=== PATIENT | female | born 1990 | race Caucasian/White ===

== ENCOUNTER 2022-10-19 18:43 | Emergency (ER) | payer OTHER, SELFPAY ==
[2022-10-19 18:57] VITALS: BP 111/66; PULSE 94; RESP 15; TEMP 36.7; O2SAT 100; BMI 21.0
--- NOTE | 2022-10-19 19:16 | DI.CT.S_ITS ---
PROCEDURE: CT HEAD/BRAIN WO CON INDICATIONS: blurred vision, right eye TECHNIQUE: Noncontrast 4.5 mm thick angled axial sections acquired from the foramen magnum to the vertex, with coronal and sagittal reformats. For radiation dose reduction, the following was used: automated exposure control, adjustment of mA and/or kV according to patient size. COMPARISON: None. FINDINGS: Image quality: Excellent. CSF spaces: Basal cisterns are patent. No extra-axial fluid collections. Ventricles are normal in size and shape. Brain: No midline shift. No intracranial masses or hemorrhage. Brambila-white matter interface is normal. Skull and face: In this patient with this given history, scrutiny is given to the orbits. No focal orbital abnormality is identified. Calvarium and visualized facial bones are intact, without suspicious lesions. Sinuses: Visualized sinuses and mastoids are clear. IMPRESSION: No imaging explanation is found for this patient's presenting symptoms. No significant intracranial abnormality is seen. No significant orbital abnormality can be seen. If there is strong clinical suspicion for an acute stroke, please consider a brain MRI for further evaluation, as it is more sensitive (assuming that there is no contraindication to MRI). Dictated by: González Agudelo M.D. on 10/19/2022 at 18:54 Approved by: González Agudelo M.D. on 10/19/2022 at 18:55
[2022-10-19 19:42] LABS: Alanine Aminotransferase 20 IU/L (<35); Albumin 4.7 g/dL (3.5-5.0); Albumin Globulin Ratio 1.1 (1.0-2.8); Alkaline Phosphatase 56 U/L (38-126); Aspartate Aminotransferase 24 IU/L (14-36); BUN Creatinine Ratio 19.8 (6-22); Bilirubin Total 0.4 mg/dL (0.2-1.3); Blood Urea Nitrogen 16 mg/dL (7-17); Carbon Dioxide 25 mmol/L (22-32); Chloride 100 mmol/L (98-107); Estimated Glomerular Filt Rate > 60 mL/min (>60); Globulin 4.1 g/dL (1.7-4.1); Glucose 102 mg/dL (70-100); HEMOLYSIS < 15 (0-50); Potassium 3.6 mmol/L (3.4-5.1); Sodium 136 mmol/L (137-145); Total Protein 8.8 g/dL (6.3-8.2)
[2022-10-19 19:45] LABS: Add Manual Diff / Slide Review NO; Basophils Absolute Auto 0 /uL (0-100); Basophils Percent Auto 0.6 % (0-2); Eosinophils Absolute Auto 100 /uL (0-450); Eosinophils Percent Auto 1.1 % (2-4); Hematocrit 41.7 % (36-46); Hemoglobin 14.4 g/dL (12.0-16.0); Lymphocytes Absolute Auto 1900 /uL (1100-4500); Lymphocytes Percent Auto 34.1 % (25-40); Mean Corpuscular HGB Conc 34.5 % (30-36); Mean Corpuscular Volume 89.8 fL (80-100); Monocytes Absolute Auto 300 /uL (0-900); Monocytes Percent Auto 4.9 % (3-14); Neutrophils Absolute Auto 3400 /uL (1500-7000); Neutrophils Percent Auto 59.3 % (50-75); Platelet Count 213 X10^3/uL (150-400); Red Blood Cell Count 4.65 X10^6/uL (4.0-5.2); Red Cell Distribution Width 12.2 % (11.6-14.8); White Blood Cell Count 5.7 X10^3/uL (4.5-11.0)
[2022-10-19 21:40] VITALS: PULSE 90; O2SAT 100
[2022-10-19 21:42] VITALS: BP 128/84; PULSE 89; RESP 18; O2SAT 99
[2022-10-19 22:00] VITALS: BP 132/78; PULSE 95; O2SAT 100
--- NOTE | 2022-10-19 22:05 | ED.GENADULT ---
HPI - General Adult General Chief complaint: Eye Problems Stated complaint: rt eye blurry vision, double vision as of tod Time Seen by Provider: 10/19/22 21:44 Source: patient Mode of arrival: Ambulatory Limitations: no limitations History of Present Illness HPI narrative: Patient is a 32-year-old female. She does wear corrective lenses. Does wear contact lenses occasionally but has not done so in several weeks/months. Has never had surgeries on her eyes before. Woke up this morning with blurry vision to her right eye. She states that it is only her far vision that is blurry. She reports no pain in her eye. No foreign body sensation. No problems with moving her eye. Her close vision is normal. She does have somewhat of a fullness around her right eye. 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 States she occasionally gets bad headaches. She does not have a bad headache now. No other upper respiratory tract infection like complaints. She states that her symptoms have actually improved slightly since this morning but not completely gone. She talked with her primary doctor who thought that she should go see an eye doctor but the insurance advised that she come to the emergency department Related Data Allergies Allergy/AdvReac Type Severity Reaction Status Date / Time neomycin Allergy Verified 10/19/22 18:57 Penicillins Allergy Verified 10/19/22 18:57 thimerosal Allergy Verified 10/19/22 18:57 Review of Systems Constitutional Constitutional: Reports system reviewed and no additional complaints, except as documented Eyes Eyes: Reports system reviewed and no additional complaints, except as documented ENT Ears, Nose, Mouth, and Throat: Reports system reviewed and no additional complaints, except as documented Integumentary/Breasts Skin/Breast: Reports system reviewed and no additional complaints, except as documented Hematologic/Lymphatic On Anticoagulants: No Patient History Social History Smoking Status: Unknown if ever smoked Smoking Status: Unknown if ever smoked alcohol intake frequency: holidays/special occasions only Substance Use Type: does not use Exam Initial Vital Signs Initial Vital Signs: Vital Signs Temperature 98.1 F 10/19/22 18:57 Pulse Rate 94 H 10/19/22 18:57 Respiratory Rate 15 10/19/22 18:57 Blood Pressure 111/66 10/19/22 18:57 Pulse Oximetry 100 01/26/23 18:57 Oxygen Delivery Method 10/19/22 18:57 Const General: cooperative, healthy appearing and comfortable HENMD Head: normal to inspection and normocephalic Face and sinus: normal facial exam Eyes General: Yes appearance normal, both eyes and all related structures Alignment and Position: alignment normal and position normal Periorbital: periorbital findings normal Eyelids: eyelids normal Conjunctivae: conjunctivae normal Sclera: sclerae normal Pupils: PERRL EOM: EOM intact bilaterally Direct ophthalmoscopy: normal light reflex, no papilledema and photophobia not present Resp Effort & Inspection: normal respiratory effort Cardio Rate: regular rate Skin General: no rashes or lesions noted Neuro General: patient alert, patient awake and moves all extremities Extrem General: normal to inspection and capillary refill normal Course Orders Ordered: ED Orders 10/19/22 19:16 CT head/brain wo con Stat 10/19/22 19:20 CBC Auto Diff [Complete Blood Count AUTO DIFF] Stat Comprehensive Metabolic Panel Stat Vital Signs Vital signs: Vital Signs - 8 hr 10/19/22 21:42 10/19/22 21:40 10/19/22 22:00 Pulse Rate 89 90 Respiratory Rate 18 Blood Pressure 128/84 132/78 Pulse Oximetry 99 100 Oxygen Delivery Method Room Air 10/19/22 22:00 Pulse Rate 95 H Respiratory Rate Blood Pressure Pulse Oximetry 100 Oxygen Delivery Method Room Air Medical Decision Making Differential Diagnosis Differential Diagnosis: Abrasion, foreign body, CVA, TIA, and other Lab Data Lab results reviewed: Yes I reviewed the patient's lab results. 10/19/22 19:20 10/19/22 19:20 Labs: Lab Results 10/19/22 10/19/22 Range/Units 19:20 19:20 WBC 5.7 (4.5-11.0) X10^3/uL RBC 4.65 (4.0-5.2) X10^6/uL Hgb 14.4 (12.0-16.0) g/dL Hct 41.7 (36-46) % MCV 89.8 (80-100) fL MCH 31.0 (26-34) PG MCHC 34.5 (30-36) % RDW 12.2 (11.6-14.8) % Plt Count 213 (150-400) X10^3/uL Neut % (Auto) 59.3 (50-75) % Lymph % (Auto) 34.1 (25-40) % [place] % (Auto) 4.9 (3-14) % Eos % (Auto) 1.1 L (2-4) % Baso % (Auto) 0.6 (0-2) % Neut # (Auto) 3400 (4643-7311) /uL Lymph # (Auto) 1900 (4572-9574) /uL [place] # (Auto) 300 (0-900) /uL Eos # (Auto) 100 (0-450) /uL Baso # (Auto) 0 (0-100) /uL Sodium 136 L (137-145) mmol/L Potassium 3.6 (3.4-5.1) mmol/L Chloride 100 (98-107) mmol/L Carbon Dioxide 25 (22-32) mmol/L BUN 16 (7-17) mg/dL Creatinine 0.81 (0.52-1.04) mg/dL Estimated GFR > 60 (>60) mL/min BUN/Creatinine Ratio 19.8 (6-22) Glucose 102 H (70-100) mg/dL Calcium 9.0 (8.4-10.2) mg/dL Total Bilirubin 0.4 (0.2-1.3) mg/dL AST 24 (14-36) IU/L ALT 20 (<35) IU/L Alkaline Phosphatase 56 (38-126) U/L Total Protein 8.8 H (6.3-8.2) g/dL Albumin 4.7 (3.5-5.0) g/dL Globulin 4.1 (1.7-4.1) g/dL Albumin/Globulin Ratio 1.1 (1.0-2.8) Imaging Data CT scan - head: Radiologist's Impression: [address] [address] [address] Scan Report Signed Patient: Yasmine Lucas MR#: [id number] : 1990 Acct:[id number] Age/Sex: 32 / F Date of Service: 10/19/22 Loc: ED Accession Number: [id number] ?? Procedure: CT head/brain wo con Ordering Provider: Dion Erazo D.O. PROCEDURE:? CT HEAD/BRAIN WO CON ? INDICATIONS:? blurred vision, right eye ? TECHNIQUE:? Noncontrast 4.5 mm thick angled axial sections acquired from the foramen magnum to the vertex, with coronal and sagittal reformats.? For radiation dose reduction, the following was used:? automated exposure control, adjustment of mA and/or kV according to patient size.? ? COMPARISON:? None. ? FINDINGS:? Image quality:? Excellent.? ? CSF spaces:? Basal cisterns are patent.? No extra-axial fluid collections.? Ventricles are normal in size and shape.? ? Brain:? No midline shift.? No intracranial masses or hemorrhage.? Brambila-white matter interface is normal.? ? Skull and face:? In this patient with this given history, scrutiny is given to the orbits.? No focal orbital abnormality is identified.? ? Calvarium and visualized facial bones are intact, without suspicious lesions.? ? Sinuses:? Visualized sinuses and mastoids are clear.? IMPRESSION:? ? No imaging explanation is found for this patient's presenting symptoms.? ? No significant intracranial abnormality is seen. ? No significant orbital abnormality can be seen. ? If there is strong clinical suspicion for an acute stroke, please consider a brain MRI for further evaluation, as it is more sensitive (assuming that there is no contraindication to MRI). ? ? Dictated by: González Agudelo M.D. on 10/19/2022 at 18:54 ? ? Approved by: González Agudelo M.D. on 10/19/2022 at 18:55?? [facility] Narrative Medical decision making narrative: Patient's only presenting symptom today is blurry distant vision with her right eye that has been going on since this morning. She is no other neurologic complaints. Her head CT is unremarkable. Her exam here in the emergency department to include her eye exam is unremarkable. Low suspicion for foreign body, abrasion, ulceration, glaucoma, infection. Will discharge patient home with instructions to contact Ophthalmology for a follow-up. She was given return precautions. She expressed understanding and agreement. Discharge Plan Departure Patient Disposition: Home Clinical Impression: Blurred vision, right eye Activity Restrictions/Additional Instructions: I recommend that you contact the dramatic coach at the number provided below for a follow-up. You can contact them in the morning. Also contact her primary doctor for follow-up return to the emergency department for any new symptoms. Referrals: Arash Sheppard MD [Physician] - Provider,Matthew ALVAREZ [Primary Care Provider] - Stand Alone Forms: Patient Portal/API
== END 2022-10-19 22:16 | disposition home or self-care (01) ==
PROVIDERS: Emergency Provider Emergency Medicine
DX: H53.8 Other visual disturbances (principal)
CPT/HCPCS: 36415; 70450; 80053; 85025; 99284

== ENCOUNTER 2023-06-05 13:20 | Emergency (ER) | payer OTHER, SELFPAY ==
[2023-06-05 13:30] VITALS: BP 139/83; PULSE 95; RESP 18; TEMP 36.6; O2SAT 99; BMI 21.6
--- NOTE | 2023-06-05 14:09 | DI.US.S_ITS ---
PROCEDURE: US PELVIC COMPLETE INDICATIONS: LOWER ABDOMEN PAIN TECHNIQUE: Real-time scanning was performed of the pelvic organs, with image documentation. Additional endovaginal scanning was necessary due to incomplete visualization of the adnexal and endometrial structures by transabdominal scanning. COMPARISON: None. FINDINGS: Uterus: 7.7 x 3.7 x 4.1 centimeters. Endometrium measures 9 millimeters, within normal limits for age. Anteverted positioning. Homogeneous echotexture. Ovaries: Nonenlarged ovaries bilaterally. Color and spectral flows are present. Other: Small amount of probably physiologic free fluid. IMPRESSION: No acute pelvic sonographic abnormality. Dictated by: Varun Sinclair M.D. on 06/05/2023 at 15:59 Approved by: Varun Sinclair M.D. on 06/05/2023 at 16:01
--- NOTE | 2023-06-05 14:26 | ED_ITS ---
HPI - Female Genitourinary <Poly Elise PA-C - Last Filed: 06/05/23 16:18> General Chief complaint: Urogenital-Female Stated complaint: lower ab pain T-3/5 history of UTI Time Seen by Provider: 06/05/23 13:56 Source: patient Mode of arrival: Ambulatory History of Present Illness HPI Narrative: Patient is a 33-year-old female with a history of recurrent UTI. She presents today with bilateral lower abdominal pain that is mild, 2/10, and occasionally achy. She reports a history of UTI every 4-6 weeks. She has 1 sexual partner, her . She denies any fever or chills, dysuria, hematuria, vaginal discharge. She reports a history of a medication approximately 5 weeks ago. Before this procedure, she had a transvaginal ultrasound that showed an intrauterine approximately 5 weeks. She took the medications and blood for 3-4 days without complications. She was feeling well prior to the start of this lower abdominal pain 5 days ago. Related Data Allergies Allergy/AdvReac Type Severity Reaction Status Date / Time neomycin Allergy Verified 06/05/23 13:35 Penicillins Allergy Verified 06/05/23 13:35 thimerosal Allergy Verified 06/05/23 13:35 Review of Systems <Poly Elise PA-C - Last Filed: 06/05/23 16:18> Review of Systems ROS Unobtainable: All systems reviewed & are unremarkable except as noted in HPI and below Patient History <Poly Elise PA-C - Last Filed: 06/05/23 16:18> alcohol intake frequency: other Substance Use Type: does not use Exam <ERICK Fishman Last Filed: 06/05/23 16:18> Narrative Exam Narrative: GENERAL: 33 year old patient appears stated age. Well-developed patient, in no distress. NEURO: AOx3. HEAD: Atraumatic. Normocephalic. EYES: Pupils equal round and reactive. Extraocular motions intact. No scleral icterus. No injection or drainage. ENT: Nose without bleeding or purulent drainage. Airway patent. RESPIRATORY: No distress GASTROINTESTINAL: Abdomen soft, nondistended. Mild tenderness to palpation over low abdomen, suprapubic area. Negative McBurney's. No CVA tenderness. EXTREMITIES: No edema or joint tenderness. SKIN: No rash or erythema of visible areas Initial Vital Signs Initial Vital Signs: Vital Signs Temperature 97.8 F 06/05/23 13:30 Pulse Rate 95 H 06/05/23 13:30 Respiratory Rate 18 06/05/23 13:30 Blood Pressure 139/83 06/05/23 13:30 Pulse Oximetry 99 06/05/23 13:30 Oxygen Delivery Method Room Air 06/05/23 13:30 <Vonda Gutierrez DO - Last Filed: 06/12/23 09:49> Initial Vital Signs Initial Vital Signs: Vital Signs Temperature 97.8 F 06/05/23 13:30 Pulse Rate 95 H 06/05/23 13:30 Respiratory Rate 18 06/05/23 13:30 Blood Pressure 139/83 06/05/23 13:30 Pulse Oximetry 99 06/05/23 13:30 Oxygen Delivery Method Room Air 06/05/23 13:30 Course <Poly Elise PA-C - Last Filed: 06/05/23 16:18> Orders Ordered: ED Orders 06/05/23 13:42 Urine Culture Stat Urine Microscopic Stat 06/05/23 14:09 US pelvic complete Stat 06/05/23 16:01 Urine Culture Stat Vital Signs Vital signs: Vital Signs - 8 hr 06/05/23 13:30 Temperature 97.8 F Pulse Rate 95 H Respiratory Rate 18 Blood Pressure 139/83 Pulse Oximetry 99 Oxygen Delivery Method Room Air <Vonda Gutierrez DO - Last Filed: 06/12/23 09:49> Orders Ordered: ED Orders 06/05/23 13:42 Urine Culture Stat Urine Microscopic Stat 06/05/23 14:09 US pelvic complete Stat 06/05/23 16:01 Urine Culture Stat Vital Signs Vital signs: Vital Signs - 8 hr 06/05/23 13:30 Temperature 97.8 F Pulse Rate 95 H Respiratory Rate 18 Blood Pressure 139/83 Pulse Oximetry 99 Oxygen Delivery Method Room Air MDM - Female Genitourinary <Poly Elise PA-C - Last Filed: 06/05/23 16:18> Lab Data Labs: Lab Results 06/05/23 Range/Units 13:42 Urine RBC None seen (0-5/HPF) Urine WBC 1-5/hpf (0-5/HPF) Ur Squamous Epith Cells 5-10 /hpf H (0-5/HPF) Urine Bacteria Many (>30) H (None) Urine Mucus 1+ H (Negative) Ur Culture Indicated? Cult not indicated Point of Care Testing Test Results Negative Urine Dip Bedside Urine Glucose Negative Bedside Urine Bilirubin - Negative Bedside Urine Ketone - Negative Urine Specific [place] 1.020 Bedside Urine Occult Blood - Negative Bedside Urine pH 6 Bedside Urine Protein - Negative Bedside Urine Urobilinogen - Negative Bedside Urine Nitrite - Negative Bedside Urine Leukocytes +/- 15 Esterase MDM Narrative Medical decision making narrative: Multiple etiologies for patient's symptoms considered including, but not limited to: UTI, pyelonephritis, ovarian torsion, ectopic , retained products of conception, appendicitis. Patient is very well-appearing and has a benign abdominal exam. She is understandably quite concerned about this pain in the setting of a recent medication . Obtained pelvic ultrasound which shows no acute abnormalities. UA shows increased WBCs but is a contaminated sample. We will recollect urine and send for culture. Discussed possibility of postcoital prophylaxis for this patient; given information about this discussed with her primary care. Patient feels very reassured by our workup today. Patient's symptoms improved over duration of stay with above-stated therapies. Findings and discharge diagnosis discussed with patient/family followed by verbalization of understanding Return precautions discussed with patient/family whom verbalize understanding of diagnosis and plan <Vonda Gutierrez, - Last Filed: 06/12/23 09:49> Lab Data Labs: Lab Results 06/05/23 Range/Units 13:42 Urine RBC None seen (0-5/HPF) Urine WBC 1-5/hpf (0-5/HPF) Ur Squamous Epith Cells 5-10 /hpf H (0-5/HPF) Urine Bacteria Many (>30) H (None) Urine Mucus 1+ H (Negative) Ur Culture Indicated? Cult not indicated Point of Care Testing Test Results Negative Urine Dip Bedside Urine Glucose Negative Bedside Urine Bilirubin - Negative Bedside Urine Ketone - Negative Urine Specific [place] 1.020 Bedside Urine Occult Blood - Negative Bedside Urine pH 6 Bedside Urine Protein - Negative Bedside Urine Urobilinogen - Negative Bedside Urine Nitrite - Negative Bedside Urine Leukocytes +/- 15 Esterase Discharge Plan Departure Patient Disposition: Home Clinical Impression: Abdominal pain in female Instructions: DI for Abdominal Pain-Adult Activity Restrictions/Additional Instructions: * your pelvic ultrasound did not show any abnormalities. Your urine sample was contaminated and difficult to interpret. Given her complex UTI history, I would like to send a repeat urine sample for culture. I will call you with the results and any treatment in the next 2-3 days. If this pain gets worse or if you develop a fever, please return for reassessment. *What to do: *Please continue to take your regular medications as directed. [ ] New medication prescriptions sent to your pharmacy: [ ] [ ] New medication written as a paper prescription [x ] No new medications given *Please follow up with your primary care provider in 2-3 days, call for an appointment. Let them know you were seen in the Emergency Department and that we ask that you be seen in follow up. We will electronically transmit a record of today's note if your PCP is in our system *If you do not have a primary care provider please contact the [facility] Resource line at [phone]. They will ask some questions about your medical history and help get you set up with a doctor in the community. *Return to Emergency Department if you should have any new, worsening or concerning symptoms, such as [fever greater than 101 F, shaking chills, worsening pain, persistent vomiting or other concerning symptoms]. Referrals: ProviderMatthew [Primary Care Provider] - Stand Alone Forms: Patient Portal/API <Vonda Gutierrez DO - Last Filed: 06/12/23 09:49> [facility] Attending Luis Antonio Attestation: I was immediately available in the department for consultation. Documentation has been reviewed.
[2023-06-05 14:28] LABS: Bacteria Urine Many (>30); Mucus Urine 1+ (Negative); RBC Urine None Seen (0-5/HPF); Squamous Epithelial Cell Urine 5-10 /HPF (0-5/HPF); WBC Urine 1-5/HPF (0-5/HPF)
[2023-06-05 14:29] LABS: Culture Indicated Urine Cult Not Indicated
[2023-06-05 16:16] VITALS: BP 129/81; PULSE 88; RESP 20; O2SAT 98
== END 2023-06-05 16:18 | disposition home or self-care (01) ==
PROVIDERS: Emergency Medicine; Emergency Provider Physician Assistant
DX: R10.30 Lower abdominal pain, unspecified (principal)
CPT/HCPCS: 76830; 76856; 81003; 81015; 81025; 87086; 93975; 99282; 99283